=== PATIENT | female | born 2000 | race Caucasian/White ===

== ENCOUNTER → 2020-12-28 | Outpatient (REF) | payer OTHER | LOC: M SFHCWAGY 18:32 | PROVIDERS: ATTEND Advanced Practice Midwife | DX: Z12.4 Encounter for screening for malignant neoplasm of cervix (principal); Z01.419 Encounter for gynecological examination (general) (routine) without abnormal findings ==

== ENCOUNTER → 2020-12-28 | Outpatient (CLI) | payer OTHER | LOC: M WHC 15:15 | PROVIDERS: ATTEND Advanced Practice Midwife | DX: Z53.9 Procedure and treatment not carried out, unspecified reason (principal); N93.0 Postcoital and contact bleeding ==

== ENCOUNTER → 2022-08-20 | Outpatient (CLI) | payer BC, OTHER ==
[~2022-08-20] MED LIST: ETON68IM SC; PANT20TA6 PO; SYNT50TA PO
== END ==
LOC: M LABSMTC 09:39
PROVIDERS: ATTEND Anesthesiology
DX: Z01.812 Encounter for preprocedural laboratory examination (principal); Z20.822 Contact with and (suspected) exposure to COVID-19

== ENCOUNTER → 2022-09-27 | Outpatient (CLI) | payer BC | LOC: M LABSMTC 09:29 | PROVIDERS: ATTEND Anesthesiology | DX: Z01.812 Encounter for preprocedural laboratory examination (principal) ==

== ENCOUNTER → 2022-10-02 | Day surgery (SDC) | payer BC ==
[~2022-10-02] VITALS: Ht 162.6 cm; Wt 94.3 kg
[~2022-10-02] MED LIST changes: +LIDOCAINE 2% 100MG/5ML SDV (FOR ANES.) As Ordered ONE; +NS 1,000 ML IV ONE; +fentaNYL 100 MCG/2 ML INJECTION As Ordered ONE; +propofoL 200 MG/20 ML VIAL As Ordered ONE
[2022-10-02 15:50] VITALS: BP 139/79
== END | disposition home or self-care (01) ==
LOC: M OPP 12:44
PROVIDERS: ATTEND Internal Medicine Gastroenterology
DX: K20.80 Other esophagitis without bleeding (principal); K29.70 Gastritis, unspecified, without bleeding; F45.8 Other somatoform disorders; E03.9 Hypothyroidism, unspecified; E16.2 Hypoglycemia, unspecified; Z79.3 Long term (current) use of hormonal contraceptives; Z79.890 Hormone replacement therapy; Z79.899 Other long term (current) drug therapy; Z88.0 Allergy status to penicillin
CPT/HCPCS: 43239; 88305; J3010

== ENCOUNTER 2025-03-29 11:24 | Day surgery (SDC) | payer BC ==
[~2025-03-29] VITALS: Ht 165.1 cm; Wt 95.7 kg
[~2025-03-29 11:24] MED LIST changes: +DEBL1TAB PO; +DICY20TA20 PO; +LEVO75TA4 PO; -LIDOCAINE 2% 100MG/5ML SDV (FOR ANES.) As Ordered ONE; -NS 1,000 ML IV ONE; -fentaNYL 100 MCG/2 ML INJECTION As Ordered ONE; -propofoL 200 MG/20 ML VIAL As Ordered ONE
[2025-03-29] MEDS ORDERED: ONDANSETRON 4MG 2ML VIAL As Ordered ONE (12:55)
[2025-03-29 13:23] VITALS: TEMP 97
[2025-03-29 13:45] VITALS: BP 132/92; O2SAT 97
== END 2025-03-29 14:02 | disposition home or self-care (01) ==
LOC: M OPP 11:24
PROVIDERS: ATTEND Internal Medicine Gastroenterology
DX: K58.0 Irritable bowel syndrome with diarrhea (principal); K30 Functional dyspepsia; Z88.0 Allergy status to penicillin; Z79.899 Other long term (current) drug therapy
CPT/HCPCS: 43235; 45378; J2405; J3010